=== PATIENT | female | born 1985 | race Caucasian/White ===

== ENCOUNTER 2021-08-22 10:30 | Outpatient (CLI) | payer OTHER, SELFPAY ==
[2021-08-22 21:30] LABS: Cholesterol* 194 mg/dL (90-199); Triglycerides* 171 mg/dL (40-149)
[2021-08-22 21:31] LABS: HDL Cholesterol* 38 mg/dL (>=50); LDL Cholesterol Calculated 122 mg/dL (<100)
[2021-08-22 22:52] LABS: Glucose* 86 mg/dL (60-115)
[2021-08-23 00:03] LABS: Free T4 Free Thyroxine* 1.45 ng/dL (0.70-1.85)
[2021-08-23 00:41] LABS: Chlamydia DNA Amplified* NOT DETECTED (No Detected); GC DNA Amplified* NOT DETECTED (No Detected)
== END 2021-08-22 10:31 | disposition home or self-care (01) ==
PROVIDERS: PCP Physician Assistant Medical; Visit Provider Physician Assistant Medical
DX: Z00.00 Encounter for general adult medical examination without abnormal findings (principal); E03.9 Hypothyroidism, unspecified; L73.9 Follicular disorder, unspecified; N89.8 Other specified noninflammatory disorders of vagina; F41.9 Anxiety disorder, unspecified
CPT/HCPCS: 80061; 82947; 84439; 84443; 87491; 87591; 87624

== ENCOUNTER 2021-08-29 15:56 | Outpatient (CLI) | payer OTHER, SELFPAY | END 2021-08-29 15:57 | disposition home or self-care (01) | LOC: NFLDREF 15:56 | PROVIDERS: PCP Physician Assistant Medical; Visit Provider Physician Assistant | DX: Z01.419 Encounter for gynecological examination (general) (routine) without abnormal findings (principal) | CPT/HCPCS: 87624; 88175 ==

== ENCOUNTER 2021-11-11 15:12 | Outpatient (CLI) | payer OTHER, SELFPAY | END 2021-11-11 15:13 | disposition home or self-care (01) | LOC: LKVREF 15:13 | PROVIDERS: PCP Physician Assistant Medical; Visit Provider Physician Assistant Medical | DX: E06.3 Autoimmune thyroiditis (principal) | CPT/HCPCS: 84443 ==

== ENCOUNTER 2022-11-16 08:00 | Outpatient (CLI) | payer BC, SELFPAY ==
--- OUTSIDE RECORDS SUMMARY | 2022-11-17 07:33 | XMS_ITS | Patient Health Record ---
Author Name Unknown Organization [facility] Address [address] [place], [place] [id number] Care Team Providers Care Daytime Babysitter Name Role Phone Jaylene Womack Primary Care Provider Gabbie Leone Unavailable [phone] ALLERGIES No Known Allergies REASON FOR REFERRAL No Information MEDICATIONS Medication SIG (Take, Route, Frequency, Duration) Notes Start Date End Date Status Clindamycin Phosphate 1 % APPLY TOPICALL Y TO THE AFFECTED AREA TWICE DAILY External for 15 Days Not-Taking Paxlovid (300/100) 20 x 150 MG & 10 x 100MG PLEASE SEE ATTACHED FOR DETAILED DIRECTIONS Oral for 5 Days Not-Taking ALPRAZolam 0.5 MG Oral for 5 Days Not-Taking Citalopram Hydrobromide 20 MG Oral for 90 Days Active Levothyroxine Sodium 150 MCG Oral for 90 Days Active SOCIAL HISTORY Tobacco Use: Social History Observation Description Date Details (start date - stop date) Never Smoker NA - NA Sex Assigned At : Social History Observation Description Sex Assigned At Unknown Tobacco Use/Smoking Question Answer Notes Are you a nonsmoker Alcohol Screen (Audit-C) Question Answer Notes Did you have a drink contain ing alcohol in the past year? Yes How many drinks did you have on a typical day when you were drinking in the past year? 1 or 2 drinks (0 point) How often did you have 6 or more drinks on one occasion in the past year? Monthly (2 points) Points 2 Interpretation Negative Sexual History Question Answer Notes Had sex in the past 12 months (vaginal, oral, or anal)? Yes with Men only Use protection? No Have you ever had a Sexually transmitted disease ? No Tobacco use other than smoking: Question Answer Notes Are you an other tobacco user? No VITAL SIGNS Blood pressure diastolic 86 mm Hg 03/31/2022 Height 65 in 03/31/2022 Blood pressure systolic 130 mm Hg 03/31/2022 Weight 249 lbs 03/31/2022 BMI 41.43 kg/m2 03/31/2022 Encounters Encounter Location Date Provider Diagnosis [facility] [address] [place] [address] 03/31/2022 Gabbie Johns IUD check up Z30.431 ASSESSMENTS Encounter Date Diagnosis Assessment Notes Treatment Notes Treatment Clinical Notes 03/31/2022 IUD check up (ICD-10 - Z30.431) Offered string check, declines. Desires to keep IUD until 8 year lexi or replace if irregular spotting/bleeding becomes more frequent. Discussed mammo at [facility] clinic, she will schedule. Annual due end of year. PLAN OF TREATMENT No Information Insurance Providers Payer Name Payer Address Payer Phone Subscriber Number Group Number Insured Name Patient Relationship to Insured Coverage Start Date Coverage End Date BC [address] [address] [place], [place] [id number] Peg Gaspar Self - patient is the insured MEDICAL (GENERAL) HISTORY Medical History History ICD Code high cholesterol depression/ anxiety thyroid problems
== END 2022-11-16 08:01 | disposition home or self-care (01) ==
LOC: NFLDREF 11-17 07:31
PROVIDERS: PCP Physician Assistant Medical; Referring Provider Physician Assistant Medical; Visit Provider Physician Assistant Medical
DX: Z00.00 Encounter for general adult medical examination without abnormal findings (principal); E03.9 Hypothyroidism, unspecified; E78.5 Hyperlipidemia, unspecified; R03.0 Elevated blood-pressure reading, without diagnosis of hypertension; E66.9 Obesity, unspecified
CPT/HCPCS: 80053; 80061; 84443

== ENCOUNTER 2024-02-12 09:01 | Outpatient (CLI) | payer OTHER, SELFPAY | END 2024-02-12 09:02 | disposition home or self-care (01) | LOC: NFLDREF 02-13 01:54 | PROVIDERS: PCP Physician Assistant Medical; Referring Provider Physician Assistant Medical; Visit Provider Physician Assistant Medical | DX: E78.5 Hyperlipidemia, unspecified (principal); E03.9 Hypothyroidism, unspecified | CPT/HCPCS: 80061; 84439; 84443 ==

== ENCOUNTER 2024-03-13 08:17 | Outpatient (CLI) | payer OTHER, SELFPAY | END 2024-03-13 08:18 | disposition home or self-care (01) | LOC: NFLDREF 03-19 02:59 | PROVIDERS: PCP Physician Assistant Medical; Referring Provider Physician Assistant Medical; Visit Provider Physician Assistant Medical | DX: E03.9 Hypothyroidism, unspecified (principal); R10.32 Left lower quadrant pain | CPT/HCPCS: 84439; 84443; 86231; 86258; 86364 ==

== ENCOUNTER 2024-06-10 08:16 | Outpatient (CLI) | payer OTHER, SELFPAY | END 2024-06-10 08:17 | disposition home or self-care (01) | LOC: NFLDREF 06-15 05:18 | PROVIDERS: PCP Physician Assistant Medical; Referring Provider Physician Assistant Medical; Visit Provider Physician Assistant Medical | DX: E03.9 Hypothyroidism, unspecified (principal) | CPT/HCPCS: 84439; 84443 ==

== ENCOUNTER 2024-09-03 09:06 | Outpatient (CLI) | payer OTHER, SELFPAY | END 2024-09-03 09:07 | disposition home or self-care (01) | LOC: NFLDREF 09-04 17:07 | PROVIDERS: PCP Physician Assistant Medical; Referring Provider Physician Assistant Medical; Visit Provider Physician Assistant Medical | DX: E06.3 Autoimmune thyroiditis (principal) | CPT/HCPCS: 84443 ==

== ENCOUNTER 2024-10-09 08:01 | Outpatient (CLI) | payer OTHER, SELFPAY | END 2024-10-09 08:02 | disposition home or self-care (01) | LOC: NFLDREF 10-15 07:37 | PROVIDERS: PCP Physician Assistant Medical; Referring Provider Physician Assistant Medical; Visit Provider Physician Assistant Medical | DX: E03.9 Hypothyroidism, unspecified (principal); Z01.419 Encounter for gynecological examination (general) (routine) without abnormal findings | CPT/HCPCS: 84443 ==

== ENCOUNTER 2024-11-11 14:55 | Outpatient (CLI) | payer OTHER, SELFPAY | END 2024-11-11 14:56 | disposition home or self-care (01) | LOC: NFLDREF 11-14 10:32 | PROVIDERS: PCP Physician Assistant Medical; Referring Provider Physician Assistant Medical; Visit Provider Physician Assistant Medical | DX: E03.9 Hypothyroidism, unspecified (principal) | CPT/HCPCS: 84443 ==

== ENCOUNTER 2025-01-05 15:32 | Outpatient (CLI) | payer OTHER, SELFPAY | END 2025-01-05 15:33 | disposition home or self-care (01) | LOC: NFLDREF 01-09 08:25 | PROVIDERS: PCP Physician Assistant Medical; Referring Provider Physician Assistant Medical; Visit Provider Physician Assistant Medical | DX: E03.9 Hypothyroidism, unspecified (principal) | CPT/HCPCS: 84443 ==